=== PATIENT | female | born 1995 ===

== ENCOUNTER 2024-04-25 15:17 | Emergency (ER) | payer OTHER, SELFPAY ==
--- NOTE | ~2024-04-25 | US_ITS ---
CLINICAL HISTORY: heavy bleeding with clots, ABD pain US pelvis transabdominal with Doppler Comparison: None Findings: Transabdominal scanning performed with Doppler. Anteverted uterus is 10.1 cm length. Normal myometrium. Endometrium 10 mm thickness. Increased vascularity within the bilateral adnexae. Right ovary 3.1 x 2.8 x 2.5 cm. Left ovary 2.6 x 1.7 x 2.0 cm. Normal color Doppler with arterial/venous spectral tracing of both ovaries. No free fluid. IMPRESSION: 1. No acute process. 2. Possible pelvic congestion syndrome This document has been electronically signed by: Teddy Munoz MD on 04/25/2024 16:56:39
--- NOTE | 2024-04-25 15:19 | ED_ITS ---
HPI - Female Genitourinary General Chief complaint: Vaginal Bleeding Stated complaint: clots during menstrual abnormal Time Seen by Provider: 04/25/24 17:55 Source: patient Limitations: no limitations History of Present Illness ED Provider: Christine Robb PA-C HPI Narrative: 28-year-old female with a history of morbid obesity and irregular periods, presents with irregular heavy bleeding x1 year. Associated lower abdominal cramping when she has her menstrual cycle. Patient states her periods can be heavy, passing clots at times, for over a week. Other months, she has a normal period. Patient currently has her period and is not excessively bleeding at this time. Patient states she recently moved back to the area, she currently does not have a ribbon lap machine tender, she is not on control. Related Data Allergies Allergy/AdvReac Type Severity Reaction Status Date / Time No Known Allergies Allergy Verified 04/25/24 15:25 Review of Systems 2 Review of Systems: Yes all other systems are reviewed and are negative Constitutional: Constitutional: Denies fatigue and Denies fever(s) Cardiovascular: Cardiovascular: Denies chest pain and Denies dyspnea Respiratory: Respiratory: Denies dyspnea Gastrointestinal: Gastrointestinal: Reports abdominal pain, Reports nausea and Denies vomiting Genitourinary: Genitourinary: Reports menorrhagia and Reports dysmenorrhea Endocrine: Endocrine: Denies fatigue PMFSH Past Medical History Attestation statement: The following information was validated with the patient. Social History Social History Smoked in Last 30 Days: No Use of substances other than those prescribed or required for medical reasons: No Advance Directives: No Advance Directives Information Provided: No Do you have a plan to hurt others: No Plan Physical Exam 2 Vital Signs: Vital Signs: Last Vital Signs Temp 98.2 F 04/25/24 18:08 Pulse 78 04/25/24 18:08 Resp 20 04/25/24 18:08 BP 116/82 04/25/24 18:08 Pulse Ox 100 04/25/24 18:08 O2 Del Method Room Air 04/25/24 18:08 BMI result Body Mass Index 41.2 Const: Other: Alert Orientation/consciousness: patient oriented x3 Resp: Effort & Inspection: normal respiratory effort Cardio: Other: Normal peripheral perfusion : Other: Deferred, the pelvic ultrasound was completed prior to seeing the patient, she is not having heavy bleeding at this time. Skin: Other: Warm dry no rash Neuro: General: patient oriented x3, gait normal, no focal motor deficits and CN's II-XI intact bilaterally Psych: Other: Cooperative Course Course Course Narrative: This is an RME performed by Marlene Lopez CNP: Additional HPI, ROS, PE not included below will be deferred to primary provider. Patient is a 28-year-old female who presents emergency department for evaluation. She admits that for a while now she has been experiencing heavy menstrual bleeding with the association of clots. However she states that her most recent cycle began yesterday in the clots or significantly larger in size at least a quarter in size. Has associated abdominal pain with this, as well as nausea. Was also feeling dizzy today. Denies any history of requiring blood transfusions in the past. Was previously being seen and evaluated at [facility] by OBGYN, and states she was told there were ?signs of endometriosis? but had not yet received a diagnosis. Plan: Serum labs, hCG, US Medical Decision Making Medical Decision Making MDM Narrative: 28-year-old female with a history of morbid obesity and irregular periods, presents with irregular heavy bleeding x1 year. Associated lower abdominal cramping when she has her menstrual cycle. Patient states her periods can be heavy, passing clots at times, for over a week. Other months, she has a normal period. Patient currently has her period and is not excessively bleeding at this time. Patient states she recently moved back to the area, she currently does not have a ribbon lap machine tender, she is not on control. Problem: Heavy irregular periods, obesity History: Per patient I have considered the following differential diagnoses: Ectopic , fibroid, endometrial cancer, dyssynchronous endometrium, other dysfunctional uterine bleeding Plan: Screening labs including serum and transvaginal ultrasound were obtained from triage, patient has evidence of likely pelvic congestion syndrome, without any other abnormality. The patient needs to follow up with a ribbon lap machine tender for her dysfunctional uterine bleeding, she will likely be placed on progesterone therapy. I have independently reviewed the following tests: Labs: No leukocytosis, not anemic, no electrolyte abnormality, not TVUS: Findings: Transabdominal scanning performed with Doppler. Anteverted uterus is 10.1 cm length. Normal myometrium. Endometrium 10 mm thickness. Increased vascularity within the bilateral adnexae. Right ovary 3.1 x 2.8 x 2.5 cm. Left ovary 2.6 x 1.7 x 2.0 cm. Normal color Doppler with arterial/venous spectral tracing of both ovaries. No free fluid. IMPRESSION: 1. No acute process. 2. Possible pelvic congestion syndrome This document has been electronically signed by: Teddy Munoz MD on 04/25/2024 16:56:39 Lab Data 04/25/24 17:55 04/25/24 17:55 Labs: Lab Results 04/25/24 Range/Units 17:55 WBC 11.3 H (4.8-10.8) X10*3/uL RBC 4.98 (4.20-5.50) X10*6/uL Hgb 12.5 (12.0-16.0) g/dl Hct 40.0 (37.0-47.0) % MCV 80.3 (80.0-98.0) fL MCH 25.1 L (27.0-33.0) pg MCHC 31.3 (31.0-35.0) g/dl RDW 13.2 (11.0-16.0) % Plt Count 297 (160-400) X10*3/uL MPV 11.0 (9.4-12.3) fL Immature Gran % (Auto) 0.2 (0.0-0.4) % Neut % (Auto) 74.1 H (45-73) % Lymph % (Auto) 19.2 L (20-40) % [place] % (Auto) 5.3 (2-11) % Eos % (Auto) 1.0 (0-4) % Baso % (Auto) 0.2 (0-2) % Lymph # (Auto) 2.2 (1.2-4.9) X10*3/uL [place] # (Auto) 0.6 (0.1-1.2) X10*3/uL Eos # (Auto) 0.1 (0.0-0.4) X10*3/uL Baso # (Auto) 0.0 (0.0-0.2) X10*3/uL Abs Immat Gran (auto) 0.02 (0.00-0.03) X10*3/uL Absolute Neuts (auto) 8.4 H (2.0-8.3) x10*3/uL Absolute Nucleated RBC 0.000 (0.0-0.012) X10*3/uL Nucleated RBC % (auto) 0.0 (0.0-0.2) /100WBC Sodium 139 (135-145) mmol/L Potassium 3.8 (3.3-5.1) mmol/L Chloride 111 H (96-108) mmol/L Carbon Dioxide 20 L (22-29) mmol/L Anion Gap 12 (12-20) BUN 8 L (9-16) mg/dL Creatinine 0.71 (0.5-1.4) mg/dL Estim Creat Clear Calc 125.8 Estimated GFR > 60 Random Glucose 81 (60-115) mg/dL Calcium 9.2 (8.4-10.2) mg/dL Total Bilirubin 0.6 (0.0-1.0) mg/dL AST 13 (5-31) U/L ALT 11 (0-31) U/L Alkaline Phosphatase 76 (39-117) U/L Total Protein 7.5 (6.5-8.0) g/dL Albumin 4.2 (3.5-5.0) g/dL Beta HCG, Quant < 2 mIU/mL Discharge Plan Discharge Clinical Impression: Dysfunctional uterine bleeding, Pelvic congestion syndrome Patient Disposition: Home, Self-Care Instructions: Dysfunctional Uterine Bleeding (ED) Additional Instructions: All of your screening labs were normal, you are not . The transvaginal ultrasound was overall normal as well. You were found to have concern for pelvic congestion syndrome. This is a condition where you have prominent blood vessels supplying blood flow to your uterus. It can cause discomfort at times, it is usually treated with a progesterone based hormone therapy. You need to establish care with a ribbon lap machine tender, to start on this therapy. I am providing you with our gynecology contact. You could also reach out to one of the local [facility] health clinics; there are sites in [place] and in [place]. You can continue to use [id number] ibuprofen 600 mg taken every 6 hours with food, for your menstrual cycle related pain. Referrals: Thomas Gardiner MD [Physician] - (needs a provider, has dysfunctional uterine bleeding, evidence of pelvic congestion syndrome on transvaginal ultrasound, otherwise it was a normal study) Stand Alone Forms: Work/School Release Print Language: Malay
[2024-04-25 15:23] VITALS: BP 150/84; PULSE 98; RESP 18; TEMP 36.6; O2SAT 100; BMI 41.2
--- OUTSIDE RECORDS SUMMARY | 2024-04-25 15:41 | XMS_ITS | Encounter Summary ---
Author Organization [employer] Address [address] [place] [id number] Care Team Providers Care Chairman President And Chief Executive Officer Name Role Phone Chelly Peña Primary Care Provider [phone] Reason for Visit * Reason Onset Date Comments Appointment Request 05/15/2022 Encounter Details Date Type Department Care Team ([facility] Contact Info) Description 05/15/2022 Telephone Adult Medicine [address] [place] [address] Chelly Peña FNP [address] [place] [address] Appointment Request Social History Tobacco Use Types Packs/Day Years Used Date Smoking Tobacco: Every Day Cigarettes Smokeless Tobacco: Never Alcohol Use Standard Drinks/Week Comments Not Currently 0 (1 standard drink = 0.6 oz pur e alcohol) Occasionally Comments Unknown Sex and Gender Information Value Date Recorded Sex Assigned at Female 12/28/2021 5:54 PM EDT Legal Sex Female 5:54 PM EDT Gender Identity Female 12/28/2021 5:54 PM EDT Sexual Orientation Straight 12/28/2021 5: 54 PM EDT documented as of this encounter Miscellaneous Notes * Telephone Encounter - Felicitas De LPN - 05/15/2022 6:06 PM EDT Appt scheduled * Telephone Encounter - Lori Escobar - 05/15/2022 12:50 PM EDT Please follow up with patient to schedule OB f/u. appointment documented in this encounter Plan of Treatment Upcoming Encounters Date Type Department Care Team (Late st Contact Info) Description 09/21/2024 1:40 PM EDT Office Visit Family Medicine [address] [place] [address] Chelly Peña FNP [address] [place] [address] documented as of this encounter Visit Diagnoses Not on filedocumented in this encounter Care Teams Chairman President And Chief Executive Officer Relationship Specialty Start Date End Date Chelly Peña FNP [address] [place] [address] PCP - General 03/03/21 documented as of this encounter
[2024-04-25 18:02] LABS: MANUAL DIFF FLAG NO
[2024-04-25 18:08] VITALS: BP 116/82; PULSE 78; RESP 20; TEMP 36.8; O2SAT 100
[2024-04-25 18:09] LABS: Basophils Percent Auto 0.2 % (0-2); Eosinophils Absolute Auto 0.1 X10*3/uL (0.0-0.4); Hemoglobin 12.5 g/dl (12.0-16.0); Imm Gran Abs Auto 0.02 X10*3/uL (0.00-0.03); Imm Gran Pct Auto 0.2 % (0.0-0.4); Lymphocytes Absolute Auto 2.2 X10*3/uL (1.2-4.9); Lymphocytes Percent Auto 19.2 % (20-40); Mean Corpuscular HGB Conc 31.3 g/dl (31.0-35.0); Mean Corpuscular Hemoglobin 25.1 pg (27.0-33.0); Mean Corpuscular Volume 80.3 fL (80.0-98.0); Monocytes Absolute Auto 0.6 X10*3/uL (0.1-1.2); Monocytes Percent Auto 5.3 % (2-11); Neutrophils Absolute Auto 8.4 x10*3/uL (2.0-8.3); Neutrophils Percent Auto 74.1 % (45-73); Platelet Count 297 X10*3/uL (160-400); Red Blood Count 4.98 X10*6/uL (4.20-5.50); Red Cell Distribution Width 13.2 % (11.0-16.0); White Blood Count 11.3 X10*3/uL (4.8-10.8)
[2024-04-25 18:52] LABS: Alanine Aminotransferase 11 U/L (0-31); Albumin Level 4.2 g/dL (3.5-5.0); Alkaline Phosphatase 76 U/L (39-117); Anion Gap 12 (12-20); Aspartate Amino Transferase 13 U/L (5-31); Bilirubin Total 0.6 mg/dL (0.0-1.0); Blood Urea Nitrogen 8 mg/dL (9-16); Calcium 9.2 mg/dL (8.4-10.2); Carbon Dioxide 20 mmol/L (22-29); Chloride 111 mmol/L (96-108); Creatinine Clr Calc Pharmacy 125.8; Estimated Glomerular Filt Rate > 60; Glucose Random 81 mg/dL (60-115); HCG Quantitative < 2 mIU/mL; Potassium 3.8 mmol/L (3.3-5.1); Sodium 139 mmol/L (135-145); Total Protein 7.5 g/dL (6.5-8.0)
[2024-04-25 19:39] VITALS: BP 116/82; PULSE 78; RESP 20; TEMP 36.8; O2SAT 100
== END 2024-04-25 19:40 | disposition home or self-care (01) ==
PROVIDERS: Nurse Practitioner Family; Emergency Provider Emergency Medicine Emergency Medical Services
DX: N92.6 Irregular menstruation, unspecified (principal); R25.2 Cramp and spasm; R10.2 Pelvic and perineal pain; N94.89 Other specified conditions associated with female genital organs and menstrual cycle; Z79.899 Other long term (current) drug therapy
CPT/HCPCS: 36415; 76830; 76856; 80053; 84702; 85025; 99284

== ENCOUNTER → 2024-04-25 15:29 | Outpatient (BNV) | payer OTHER, SELFPAY | PROVIDERS: Visit Provider Radiology Diagnostic Radiology | DX: N93.8 Other specified abnormal uterine and vaginal bleeding (principal) | CPT/HCPCS: 76830; 76856 ==